=== PATIENT | female | born 1950 | race Caucasian/White ===

== ENCOUNTER → 2017-07-22 | Outpatient (CLI) | payer OTHER | LOC: CIMAGING 13:23 | PROVIDERS: ATTEND Family Medicine | DX: R92.8 Other abnormal and inconclusive findings on diagnostic imaging of breast (principal); Z85.3 Personal history of malignant neoplasm of breast | CPT/HCPCS: 76641-PO ==

== ENCOUNTER → 2017-08-29 | Outpatient (CLI) | payer OTHER ==
[~2017-08-29] MED LIST: LIDOCAINE 1% 300 MG/30 ML SDV ONE
--- NOTE | 2017-08-29 13:34 | PDRADPN ---
Radiology Procedure Note Date of Procedure: 08/29/17 Radiologist: Sp Chawla Anesthesia: Local (Specify) Pre-op Diagnosis: L thyroid nodule Post-op Diagnosis: same Indication: meets FNA criteria Finding(s): Three 25G FNAs obtained from sales and marketing representative part of solid large left nodule. Three 25G obtained from small cyst mural nodule inferior left lobe Inf/Abcess present in the surg proc area at time of surgery?: No EBL: Minimal Specimen(s): Six 25G FNA specimens submitted directly to cytology for adequacy.
== END ==
LOC: FIMAGING 12:14
PROVIDERS: ATTEND Family Medicine
PROC: 0G9K3ZX Drainage of Thyroid Gland, Percutaneous Approach, Diagnostic (ICD-10-PCS; principal; 2017-08-29)
DX: E04.1 Nontoxic single thyroid nodule (principal)